=== PATIENT | female | born 1950 | race Caucasian/White ===

== ENCOUNTER 2016-09-11 22:23 | Emergency (ER) | payer MEDICARE, OTHER ==
[~2016-09-11] VITALS: Ht 152.4 cm; Wt 61.4 kg
[2016-09-12] MEDS ORDERED: HYDROCODONE/ACETAMINOPHEN 5-325 MG TABLET PO ONE (00:45)
[2016-09-12] MEDS ORDERED: KETOROLAC TROMETHAMINE 60 MG/2 ML VIAL IM ONE (00:45)
[2016-09-12 00:56] LABS: APPEARANCE,URINE CLEAR (CLEAR); GLUCOSE, URINE (UA) NEGATIVE (NEGATIVE); KETONES,URINE NEGATIVE (NEGATIVE); LEUKOCYTE ESTERASE ,URINE NEGATIVE (NEGATIVE); OCCULT BLOOD,URINE NEGATIVE (NEGATIVE); PROTEIN,URINE NEGATIVE (NEGATIVE)
[2016-09-12 01:07] LABS: BASOPHILS % (AUTO) 0.2 % (0.0-2.0); EOSINOPHILS % (AUTO) 1.2 % (1.0-6.0); HEMATOCRIT 41.6 % (36-46); HEMOGLOBIN 13.5 g/dL (12.0-16.0); LYMPHOCYTES % (AUTO) 29.1 % (22.0-44.0); MEAN CORPUSCULAR HEMOGLOBIN 29.1 pg (26.0-34.0); MEAN CORPUSCULAR HGB CONC 32.4 G/dL (31.0-37.0); MEAN CORPUSCULAR VOLUME 90 fL (80-100); MONOCYTES # (AUTO) 0.4 K/uL (0.1-1.0); MONOCYTES % (AUTO) 6.5 % (2.0-9.0); NEUTROPHILS # (AUTO) 4.3 K/uL (1.8-7.7); PLATELET COUNT (AUTO) 203 K/uL (150-450); RED BLOOD CELL COUNT(AUTO) 4.63 MIL/uL (4.00-5.20); RED CELL DISTRIBUTION WIDTH 14.3 % (11.5-14.5); WHITE BLOOD COUNT (AUTO) 6.9 K/uL (4.5-11.0)
[2016-09-12 01:14] LABS: ANION GAP 4 mmol/L (8-16); CALCIUM, TOTAL 9.6 mg/dL (8.8-10.5); CARBON DIOXIDE 32 mmol/L (22-29); CHLORIDE 106 mmol/L (98-107); GLOMERULAR FILTR. RATE CALC > 60 mL/min (>60); POTASSIUM 4.1 mmol/L (3.5-5.1); SODIUM SERUM 142 mmol/L (136-145); UREA NITROGEN, BLOOD 13 mg/dL (7-18)
[2016-09-12 01:20] LABS: ALANINE AMINOTRANSFERASE 48 U/L (12-78); ALBUMIN 4.1 g/dL (3.4-5.0); ASPARTATE AMINOTRANSFERASE 29 U/L (15-37); BILIRUBIN,TOTAL 0.2 mg/dL (0.1-1.0); TOTAL PROTEIN, SERUM 7.5 g/dL (6.4-8.2)
[2016-09-12 01:22] VITALS: BP 148/81
[2016-09-12 01:38] LABS: RBC,URINE None Seen /HPF (0-2); WBC,URINE None Seen /HPF (0-5)
== END 2016-09-12 03:08 | disposition home or self-care (01) ==
LOC: EMS 22:24
DX: M47.9 Spondylosis, unspecified (principal); M54.5 Low back pain
CPT/HCPCS: 36415; 72070; 72100; 80053; 81001; 83690; 84484; 85025; 96372; 99285; J1885

== ENCOUNTER 2024-05-12 17:04 | Inpatient (IN) | payer MEDICARE, OTHER ==
[~2024-05-12] VITALS: Ht 152.4 cm; Wt 68.2 kg
[2024-05-12 16:40] VITALS: BP 143/74; PULSE 71; RESP 18; TEMP 98; O2SAT 94
[2024-05-12] MEDS ORDERED: ACETAMINOPHEN 325 MG TABLET PO PRN (17:30)
[2024-05-12] MEDS ORDERED: MAGNESIUM HYDROXIDE SUSPENSION 30 ML UDCUP PO PRN (17:45)
[2024-05-12] MEDS ORDERED: DEXTROSE 50%-WATER 25 GM/50 ML SYRINGE IVP PRN (18:00)
[2024-05-12] MEDS: INFLUENZA VIRUS VACCINE TVS (6MO+) 2024-25/PF 45 MCG/0.5 ML SYRINGE IM. ONE (18:15)
[2024-05-12] MEDS: PNEUMOCOCCAL VACCINE POLYVALENT 0.5 ML SYRINGE [PPSV23] IM. ONE (18:15)
[2024-05-12] MEDS: INSULIN LISPRO 100 UNITS/ML SQ PRN (18:26)
[2024-05-12 18:45] LABS: GLUCOMETER DEV NAME(LOC) 2WR.2B; GLUCOSE,POINT OF CARE 161 MG/DL (70-110)
[2024-05-12 20:05] VITALS: BP 132/60; PULSE 86; RESP 18; TEMP 98.3; O2SAT 94
[2024-05-12] MEDS: ETHYL ALCOHOL 62% ANTISEPTIC NASAL SANITIZER 0.6 ML AMPUL NASAL SCH (20:47)
[2024-05-12] MEDS: SENNOSIDES 8.6 MG TABLET PO SCH (20:47)
[2024-05-12] MEDS: DOCUSATE SODIUM 100 MG CAPSULE PO SCH (20:47)
[2024-05-12] MEDS: TAMSULOSIN HCL 0.4 MG CAPSULE PO SCH (20:47)
[2024-05-12 21:00] VITALS: O2SAT 98
[2024-05-12 21:25] LABS: GLUCOMETER DEV NAME(LOC) 2WR.1D; GLUCOSE,POINT OF CARE 259 MG/DL (70-110)
[2024-05-12] MEDS: 0.9% SODIUM CHLORIDE 10 ML SYRINGE IVP SCH (21:49)
[2024-05-12] MEDS: DOXYCYCLINE HYCLATE 100 MG in DEXTROSE 5%-WATER 100 ML IV SCH (21:54)
[2024-05-12 22:12] VITALS: PULSE 83; RESP 26; O2SAT 95
[2024-05-12] MEDS: IPRATROPIUM BROMIDE 0.5 MG/2.5 ML NEB SOLUTION NEB SCH (22:12)
[2024-05-12] MEDS: ALBUTEROL SULFATE 2.5 MG/0.5 ML NEB SOLUTION NEB SCH (22:12)
[2024-05-12 22:27] VITALS: PULSE 84; RESP 24; O2SAT 96
[2024-05-12] MEDS: MethylPREDNISolone SOD SUCC 40 MG/ML VIAL IVP SCH (23:00)
[2024-05-12] MEDS: HEPARIN SODIUM,PORCINE 5,000 UNITS/ML VIAL SQ SCH (23:00)
[2024-05-13] VITALS (15 sets, daily range): BP systolic 119–128; BP diastolic 66–68; PULSE 62–86; RESP 18–33; TEMP 98.4; O2SAT 94–99
[2024-05-13 07:01] LABS: GLUCOMETER DEV NAME(LOC) 2WR.1D; GLUCOSE,POINT OF CARE 150 MG/DL (70-110)
[2024-05-13 07:17] LABS: BASOPHILS % (AUTO) 0.1 % (0.0-2.0); EOSINOPHILS % (AUTO) 0 % (1.0-6.0); HEMATOCRIT 37.6 % (36-46); HEMOGLOBIN 12.5 g/dL (12.0-16.0); LYMPHOCYTES # (AUTO) 0.6 K/uL (1.0-4.8); LYMPHOCYTES % (AUTO) 6.9 % (22.0-44.0); MEAN CORPUSCULAR HEMOGLOBIN 30.4 pg (26.0-34.0); MEAN CORPUSCULAR HGB CONC 33.2 G/dL (31.0-37.0); MEAN CORPUSCULAR VOLUME 92 fL (80-100); MONOCYTES # (AUTO) 0.4 K/uL (0.1-1.0); MONOCYTES % (AUTO) 4.9 % (2.0-9.0); NEUTROPHILS # (AUTO) 7.1 K/uL (1.8-7.7); PLATELET COUNT (AUTO) 128 K/uL (150-450); RED BLOOD CELL COUNT(AUTO) 4.11 MIL/uL (4.00-5.20); RED CELL DISTRIBUTION WIDTH 14.1 % (11.5-14.5)
[2024-05-13 07:29] LABS: NEUTROPHILS % (AUTO) 88.1 % (40.0-70.0)
[2024-05-13 07:32] LABS: ALANINE AMINOTRANSFERASE 34 U/L (12-78); ALBUMIN 2.6 g/dL (3.4-5.0); ALKALINE PHOSPHATASE 58 U/L (46-116); ANION GAP 3 mmol/L (8-16); ASPARTATE AMINOTRANSFERASE 15 U/L (15-37); BILIRUBIN,TOTAL 0.5 mg/dL (0.1-1.0); CALCIUM, TOTAL 8.9 mg/dL (8.8-10.5); CARBON DIOXIDE 32 mmol/L (22-29); CHLORIDE 105 mmol/L (98-107); GLOMERULAR FILTR. RATE CALC > 60 mL/min (>60); GLUCOSE,RANDOM 153 mg/dL (70-110); SODIUM SERUM 140 mmol/L (136-145); TOTAL PROTEIN, SERUM 5.6 g/dL (6.4-8.2); UREA NITROGEN, BLOOD 27 mg/dL (7-18)
[2024-05-13] MEDS: FAMOTIDINE 20 MG TABLET PO SCH (07:58)
[2024-05-13] MEDS: ATORVASTATIN CALCIUM 20 MG TABLET PO SCH (07:58)
[2024-05-13] MEDS: CefTRIAXone SODIUM 2 GM in DEXTROSE 5%-WATER 50 ML IV SCH (12:11)
[2024-05-13 12:12] LABS: GLUCOMETER DEV NAME(LOC) 2WR.1D; GLUCOSE,POINT OF CARE 160 MG/DL (70-110)
[2024-05-13 16:55] LABS: GLUCOMETER DEV NAME(LOC) 2WR.2B; GLUCOSE,POINT OF CARE 112 MG/DL (70-110)
[2024-05-13] MEDS: TAMSULOSIN HCL 0.4 MG CAPSULE PO SCH (20:51)
[2024-05-13] MEDS: MethylPREDNISolone SOD SUCC 40 MG/ML VIAL IVP SCH (20:52)
[2024-05-13 21:36] LABS: GLUCOMETER DEV NAME(LOC) 2WR.1D; GLUCOSE,POINT OF CARE 170 MG/DL (70-110)
[2024-05-14] VITALS (15 sets, daily range): BP systolic 117–121; BP diastolic 56–64; PULSE 64–79; RESP 18–35; TEMP 98–98.7; O2SAT 91–98
[2024-05-14 07:11] LABS: GLUCOMETER DEV NAME(LOC) 2WR.1D; GLUCOSE,POINT OF CARE 153 MG/DL (70-110)
[2024-05-14] MEDS: MULTIVITAMINS WITH MINERALS, THERAPEUTIC TABLET PO SCH (08:42)
[2024-05-14 12:45] LABS: GLUCOMETER DEV NAME(LOC) 2WR.1D; GLUCOSE,POINT OF CARE 186 MG/DL (70-110)
[2024-05-14] MEDS: MetFORMIN HCL 500 MG TABLET PO SCH (16:07)
[2024-05-14 17:05] LABS: GLUCOMETER DEV NAME(LOC) 2WR.1D; GLUCOSE,POINT OF CARE 150 MG/DL (70-110)
[2024-05-14 22:26] LABS: GLUCOMETER DEV NAME(LOC) 2WR.1D; GLUCOSE,POINT OF CARE 160 MG/DL (70-110)
[2024-05-15] VITALS (15 sets, daily range): BP systolic 114–135; BP diastolic 46–49; PULSE 68–80; RESP 16–28; TEMP 98–98.1; O2SAT 92–99
[2024-05-15 07:01] LABS: GLUCOMETER DEV NAME(LOC) 2WR.2B; GLUCOSE,POINT OF CARE 195 MG/DL (70-110)
[2024-05-15 12:01] LABS: GLUCOMETER DEV NAME(LOC) 2WR.1D; GLUCOSE,POINT OF CARE 131 MG/DL (70-110)
[2024-05-15 19:01] LABS: GLUCOMETER DEV NAME(LOC) 2WR.1D; GLUCOSE,POINT OF CARE 121 MG/DL (70-110)
[2024-05-15 21:56] LABS: GLUCOMETER DEV NAME(LOC) 2WR.1D; GLUCOSE,POINT OF CARE 120 MG/DL (70-110)
[2024-05-16] VITALS (12 sets, daily range): BP systolic 123–132; BP diastolic 54–56; PULSE 69–98; RESP 18–26; TEMP 98–98.2; O2SAT 93–99
[2024-05-16 06:51] LABS: GLUCOMETER DEV NAME(LOC) 2WR.1D; GLUCOSE,POINT OF CARE 175 MG/DL (70-110)
[2024-05-16] MEDS: PredniSONE 10 MG TABLET PO SCH (08:59)
[2024-05-16 12:41] LABS: GLUCOMETER DEV NAME(LOC) 2WR.2B; GLUCOSE,POINT OF CARE 104 MG/DL (70-110)
[2024-05-16 17:31] LABS: GLUCOMETER DEV NAME(LOC) 2WR.1D; GLUCOSE,POINT OF CARE 134 MG/DL (70-110)
[2024-05-16 21:41] LABS: GLUCOMETER DEV NAME(LOC) 2WR.2B; GLUCOSE,POINT OF CARE 208 MG/DL (70-110)
[2024-05-17] VITALS (17 sets, daily range): BP systolic 100–108; BP diastolic 57; PULSE 74–101; RESP 18–29; TEMP 98.2–98.3; O2SAT 90–97
[2024-05-17 06:50] LABS: GLUCOMETER DEV NAME(LOC) 2WR.2B; GLUCOSE,POINT OF CARE 109 MG/DL (70-110)
[2024-05-17 12:45] LABS: GLUCOMETER DEV NAME(LOC) 2WR.1D; GLUCOSE,POINT OF CARE 138 MG/DL (70-110)
[2024-05-17 17:16] LABS: GLUCOMETER DEV NAME(LOC) 2WR.1D; GLUCOSE,POINT OF CARE 260 MG/DL (70-110)
[2024-05-17] MEDS: DOCUSATE SODIUM 250 MG CAPSULE PO SCH (20:31)
[2024-05-17 21:16] LABS: GLUCOMETER DEV NAME(LOC) 2WR.2B; GLUCOSE,POINT OF CARE 148 MG/DL (70-110)
[2024-05-18] VITALS (18 sets, daily range): BP systolic 93–102; BP diastolic 42–50; PULSE 74–91; RESP 17–35; TEMP 98.1–98.2; O2SAT 91–98
[2024-05-18 07:36] LABS: GLUCOMETER DEV NAME(LOC) 2WR.2B; GLUCOSE,POINT OF CARE 96 MG/DL (70-110)
[2024-05-18 11:50] LABS: GLUCOMETER DEV NAME(LOC) 2WR.2B; GLUCOSE,POINT OF CARE 142 MG/DL (70-110)
[2024-05-18] MEDS: ALBUTEROL SULFATE 2.5 MG/0.5 ML NEB SOLUTION NEB PRN (16:32)
[2024-05-18 17:36] LABS: GLUCOMETER DEV NAME(LOC) 2WR.2B; GLUCOSE,POINT OF CARE 179 MG/DL (70-110)
[2024-05-18 21:11] LABS: GLUCOMETER DEV NAME(LOC) 2WR.2B; GLUCOSE,POINT OF CARE 180 MG/DL (70-110)
[2024-05-19] VITALS (15 sets, daily range): BP systolic 124–125; BP diastolic 62–64; PULSE 70–97; RESP 18–25; TEMP 98.3–98.5; O2SAT 93–99
[2024-05-19 06:31] LABS: GLUCOMETER DEV NAME(LOC) 2WR.1D; GLUCOSE,POINT OF CARE 98 MG/DL (70-110)
[2024-05-19 11:40] LABS: GLUCOMETER DEV NAME(LOC) 2WR.1D; GLUCOSE,POINT OF CARE 153 MG/DL (70-110)
[2024-05-19 16:56] LABS: GLUCOMETER DEV NAME(LOC) 2WR.1D; GLUCOSE,POINT OF CARE 123 MG/DL (70-110)
[2024-05-19 21:56] LABS: GLUCOMETER DEV NAME(LOC) 2WR.1D; GLUCOSE,POINT OF CARE 138 MG/DL (70-110)
[2024-05-20] VITALS (17 sets, daily range): BP systolic 107–121; BP diastolic 53–63; PULSE 77–94; RESP 16–33; TEMP 98–98.9; O2SAT 92–99
[2024-05-20] MEDS ORDERED: DOCU-412 PO (04:21)
[2024-05-20] MEDS ORDERED: ATOR20TA PO (04:21)
[2024-05-20] MEDS ORDERED: SENN-376 PO (04:21)
[2024-05-20] MEDS ORDERED: METF-1211 PO (04:21)
[2024-05-20] MEDS ORDERED: INSU100V SQ (04:21)
[2024-05-20] MEDS ORDERED: FAMO20 PO (04:21)
[2024-05-20] MEDS ORDERED: MULT-1303 PO (04:21)
[2024-05-20 07:01] LABS: GLUCOMETER DEV NAME(LOC) 2WR.2B; GLUCOSE,POINT OF CARE 104 MG/DL (70-110)
[2024-05-20 11:25] LABS: GLUCOMETER DEV NAME(LOC) 2WR.1D; GLUCOSE,POINT OF CARE 232 MG/DL (70-110)
[2024-05-20 16:41] LABS: GLUCOMETER DEV NAME(LOC) 2WR.1D; GLUCOSE,POINT OF CARE 177 MG/DL (70-110)
[2024-05-20 21:21] LABS: GLUCOMETER DEV NAME(LOC) 2WR.1D; GLUCOSE,POINT OF CARE 132 MG/DL (70-110)
[2024-05-21] VITALS (13 sets, daily range): BP systolic 104–105; BP diastolic 47–54; PULSE 81–88; RESP 16–28; TEMP 97.7–98.1; O2SAT 93–98
[2024-05-21] MEDS ORDERED: PRED-554 PO (02:39)
[2024-05-21 06:51] LABS: GLUCOMETER DEV NAME(LOC) 2WR.2B; GLUCOSE,POINT OF CARE 98 MG/DL (70-110)
[2024-05-21] MEDS: PredniSONE 10 MG TABLET PO SCH (08:51)
[2024-05-21 09:41] LABS: BASOPHILS % (AUTO) 0.2 % (0.0-2.0); EOSINOPHILS % (AUTO) 2.5 % (1.0-6.0); HEMATOCRIT 39.5 % (36-46); HEMOGLOBIN 12.8 g/dL (12.0-16.0); LYMPHOCYTES # (AUTO) 0.8 K/uL (1.0-4.8); MEAN CORPUSCULAR HEMOGLOBIN 29.7 pg (26.0-34.0); MEAN CORPUSCULAR HGB CONC 32.4 G/dL (31.0-37.0); MEAN CORPUSCULAR VOLUME 92 fL (80-100); MONOCYTES # (AUTO) 0.4 K/uL (0.1-1.0); MONOCYTES % (AUTO) 4.9 % (2.0-9.0); NEUTROPHILS % (AUTO) 81.4 % (40.0-70.0); RED BLOOD CELL COUNT(AUTO) 4.29 MIL/uL (4.00-5.20); RED CELL DISTRIBUTION WIDTH 14.7 % (11.5-14.5); WHITE BLOOD COUNT (AUTO) 7.4 K/uL (4.5-11.0)
[2024-05-21 09:46] LABS: ANION GAP 3 mmol/L (8-16); CALCIUM, TOTAL 8.8 mg/dL (8.8-10.5); CARBON DIOXIDE 34 mmol/L (22-29); CHLORIDE 103 mmol/L (98-107); CREATININE 0.69 mg/dL (0.60-1.30); GLOMERULAR FILTR. RATE CALC > 60 mL/min (>60); GLUCOSE,RANDOM 149 mg/dL (70-110); POTASSIUM 3.9 mmol/L (3.5-5.1); SODIUM SERUM 140 mmol/L (136-145); UREA NITROGEN, BLOOD 22 mg/dL (7-18)
[2024-05-21 11:13] LABS: PLATELET COUNT (AUTO) 99 K/uL (150-450)
[2024-05-21 11:56] LABS: GLUCOMETER DEV NAME(LOC) 2WR.1D; GLUCOSE,POINT OF CARE 193 MG/DL (70-110)
[2024-05-21 17:26] LABS: GLUCOMETER DEV NAME(LOC) 2WR.1D; GLUCOSE,POINT OF CARE 170 MG/DL (70-110)
[2024-05-21 21:26] LABS: GLUCOMETER DEV NAME(LOC) 2WR.1D; GLUCOSE,POINT OF CARE 182 MG/DL (70-110)
[2024-05-22] VITALS (18 sets, daily range): BP systolic 99–113; BP diastolic 44–58; PULSE 77–87; RESP 18–33; TEMP 98.2–98.3; O2SAT 93–98
[2024-05-22 07:05] LABS: GLUCOMETER DEV NAME(LOC) 2WR.1D; GLUCOSE,POINT OF CARE 111 MG/DL (70-110)
[2024-05-22 11:46] LABS: GLUCOMETER DEV NAME(LOC) 2WR.1D; GLUCOSE,POINT OF CARE 165 MG/DL (70-110)
[2024-05-22 17:40] LABS: GLUCOMETER DEV NAME(LOC) 2WR.1D; GLUCOSE,POINT OF CARE 172 MG/DL (70-110)
[2024-05-22 20:46] LABS: GLUCOMETER DEV NAME(LOC) 2WR.1D; GLUCOSE,POINT OF CARE 179 MG/DL (70-110)
[2024-05-23] VITALS (10 sets, daily range): BP systolic 111; BP diastolic 47; PULSE 73–84; RESP 18–24; TEMP 98.3; O2SAT 80–98
[2024-05-23 07:16] LABS: GLUCOMETER DEV NAME(LOC) 2WR.2B; GLUCOSE,POINT OF CARE 110 MG/DL (70-110)
[2024-05-23] MEDS: PredniSONE 10 MG TABLET PO SCH (08:35)
[2024-05-23] MEDS ORDERED: METF-1211 PO (10:45)
[2024-05-23] MEDS ORDERED: SENN-374 PO (10:45)
[2024-05-23] MEDS ORDERED: PRED-729 PO (10:45)
[2024-05-23] MEDS ORDERED: DOCU-412 PO (10:45)
[2024-05-23] MEDS ORDERED: INSU100V SQ (10:45)
[2024-05-23] MEDS ORDERED: FAMO20 PO (10:45)
[2024-05-23] MEDS ORDERED: MULT-1303 PO (10:45)
[2024-05-23] MEDS ORDERED: ATOR20TA65 PO (10:45)
[2024-05-23] MEDS ORDERED: ALBU18HF12 IH (10:58)
[2024-05-23 13:36] LABS: GLUCOMETER DEV NAME(LOC) 2WR.1D; GLUCOSE,POINT OF CARE 162 MG/DL (70-110)
[2024-05-23 18:01] LABS: GLUCOMETER DEV NAME(LOC) 2WR.1D; GLUCOSE,POINT OF CARE 133 MG/DL (70-110)
== END 2024-05-23 17:30 | disposition home health service (06) | DRG 190 ==
LOC: 2WR 17:06
PROVIDERS: ADMIT Physical Medicine & Rehabilitation; ATTEND Physical Medicine & Rehabilitation
PROC: 5A09357 Assistance with Respiratory Ventilation, Less than 24 Consecutive Hours, Continuous Positive Airway Pressure (ICD-10-PCS; principal; 2024-05-12)
PROC: 5A09357 Assistance with Respiratory Ventilation, Less than 24 Consecutive Hours, Continuous Positive Airway Pressure (ICD-10-PCS; 2024-05-13)
PROC: 5A09357 Assistance with Respiratory Ventilation, Less than 24 Consecutive Hours, Continuous Positive Airway Pressure (ICD-10-PCS; 2024-05-14)
PROC: 5A09357 Assistance with Respiratory Ventilation, Less than 24 Consecutive Hours, Continuous Positive Airway Pressure (ICD-10-PCS; 2024-05-15)
PROC: 5A09357 Assistance with Respiratory Ventilation, Less than 24 Consecutive Hours, Continuous Positive Airway Pressure (ICD-10-PCS; 2024-05-16)
PROC: 5A09357 Assistance with Respiratory Ventilation, Less than 24 Consecutive Hours, Continuous Positive Airway Pressure (ICD-10-PCS; 2024-05-17)
PROC: 5A09357 Assistance with Respiratory Ventilation, Less than 24 Consecutive Hours, Continuous Positive Airway Pressure (ICD-10-PCS; 2024-05-18)
PROC: 5A09357 Assistance with Respiratory Ventilation, Less than 24 Consecutive Hours, Continuous Positive Airway Pressure (ICD-10-PCS; 2024-05-20)
PROC: 5A09357 Assistance with Respiratory Ventilation, Less than 24 Consecutive Hours, Continuous Positive Airway Pressure (ICD-10-PCS; 2024-05-21)
PROC: 5A09357 Assistance with Respiratory Ventilation, Less than 24 Consecutive Hours, Continuous Positive Airway Pressure (ICD-10-PCS; 2024-05-22)
PROC: 5A09357 Assistance with Respiratory Ventilation, Less than 24 Consecutive Hours, Continuous Positive Airway Pressure (ICD-10-PCS; 2024-05-23)
DX: J44.0 Chronic obstructive pulmonary disease with (acute) lower respiratory infection (principal); J18.9 Pneumonia, unspecified organism; J96.21 Acute and chronic respiratory failure with hypoxia; J96.22 Acute and chronic respiratory failure with hypercapnia; E46 Unspecified protein-calorie malnutrition; G93.40 Encephalopathy, unspecified; E87.29 Other acidosis; I50.32 Chronic diastolic (congestive) heart failure; I11.0 Hypertensive heart disease with heart failure; Z74.09 Other reduced mobility; D64.9 Anemia, unspecified; E11.9 Type 2 diabetes mellitus without complications; E66.9 Obesity, unspecified; G47.33 Obstructive sleep apnea (adult) (pediatric); E78.00 Pure hypercholesterolemia, unspecified; M79.89 Other specified soft tissue disorders; R26.9 Unspecified abnormalities of gait and mobility; R33.9 Retention of urine, unspecified; R91.8 Other nonspecific abnormal finding of lung field; R53.81 Other malaise; R26.2 Difficulty in walking, not elsewhere classified; Z91.199 Patient's noncompliance with other medical treatment and regimen due to unspecified reason; Z68.29 Body mass index [BMI] 29.0-29.9, adult; Z79.899 Other long term (current) drug therapy; Z90.49 Acquired absence of other specified parts of digestive tract; Z91.040 Latex allergy status
CPT/HCPCS: 80048; 80053; 82962; 83036; 85025; 87081; 92523; 94640; 94660; 97110; 97116; 97150; 97162; 97167; 97530; 97535; 99366; J0696; J1644; J3490; J7060